=== PATIENT | female | born 1945 ===

== ENCOUNTER 2018-01-07 06:27 | Day surgery (SDC) | payer MEDICARE ==
[2016-03-25 07:02] VITALS: BMI 21.2
[~2018-01-07 06:27] MED LIST: Phenylephrine 2.5% Opht Soln OD SCH; Tropicamide 0.5% Opht Sol OD SCH
[2018-01-07] MEDS ORDERED: Carbachol 0.01% IO ONE (07:42)
[2018-01-07] MEDS ORDERED: Povidone Iodine Ophthalmic 5% Soln ONE (07:42)
[2018-01-07] MEDS ORDERED: Tetracaine 0.5% Ophth (OR ONLY) ONE (07:43)
[2018-01-07] MEDS ORDERED: Tobramycin/Dexamethasone OPHT OINT ONE (07:43)
[2018-01-07] MEDS ORDERED: Chondroitin/Hyaluronate Opth Syringe KIT (0.55 ml-0.5 ml) IO ONE (07:43)
[2018-01-07] MEDS ORDERED: Lidocaine 2% MPF (5 ml) Inj ONE (07:44)
[2018-01-07] MEDS ORDERED: Hyaluronidase Human, Recombi 150 U/ML VIAL ONE (07:44)
[2018-01-07] MEDS ORDERED: Lactated Ringer's 500 ML IV ONE (08:12)
[2018-01-07] MEDS ORDERED: Propofol 10 mg/ml Inj (20 ML) ONE (09:04)
[2018-01-07] MEDS ORDERED: Lactated Ringer's 1,000 ML IV SCH (09:45)
[2018-01-07 09:54] VITALS: O2SAT 100
[2018-01-07 11:55] VITALS: BP 116/64; PULSE 62; RESP 18; TEMP 97.7
--- NOTE | 2018-01-08 06:51 | OP ---
PROCEDURE DATE: 01/07/2018 PREOPERATIVE DIAGNOSIS: Hypermature cataract, right eye. POSTOPERATIVE DIAGNOSIS: Hypermature cataract, right eye. OPERATIVE PROCEDURE: Complex cataract surgery of right eye due to hypermaturity using VisionBlue. ATTENDING: Tony Schafer MD TYPE OF ANESTHESIA: Retrobulbar block. COMPLICATIONS: None. ESTIMATED BLOOD LOSS: Zero. PROCEDURE: The patient was brought to the operating room and properly identified. Anesthesia staff administered intravenous sedation and retrobulbar block was given to the surgical eye. The patient was then prepped and draped in the usual sterile fashion. Attention was turned to the surgical eye. A lid speculum was placed into interpalpebral fissure. Sitting temporally, two paracentesis incisions were made. The anterior chamber was filled with viscoelastic and a triplanar clear corneal incision was made. Using a cystitome, anterior capsular leaflet was created. Utrata forceps were used to create a continuous curvilinear capsulorrhexis. Balanced salt solution on a cannula was used to hydrodissect and hydrodelineate the lens. The lens was then phacoemulsified with no complications. Automated irrigation and aspiration was used to remove the cortex. Viscoelastic was used to deepen the anterior chamber. The lens was placed in the capsular bag. Automated irrigation and aspiration was used to remove the viscoelastic. The anterior chamber was filled with Miochol. The wounds were hydrated with balanced salt solution. There was noted to be no leak at the end of the case and the lens was well positioned. The lid speculum was removed. The eye was given antibiotics and steroids and covered with a patch and shield. The patient was returned to the recovery room in stable condition. ADDENDUM Due to complexity of cataract, VisionBlue was used to highlight the anterior capsule. Careful continuous curvilinear capsulorhexis was then created, and no complication. Tony Schafer MD
== END 2018-01-07 10:38 | disposition home or self-care (01) ==
LOC: C.SDS 06:27
PROVIDERS: ATTEND Ophthalmology
DX: H25.21 Age-related cataract, morgagnian type, right eye (principal); I10 Essential (primary) hypertension; E78.00 Pure hypercholesterolemia, unspecified
CPT/HCPCS: 66982; J2704; J3470; J7120; V2632

== ENCOUNTER 2018-02-04 10:16 | Day surgery (SDC) | payer MEDICARE ==
[2016-03-25 07:02] VITALS: BMI 21.2
[~2018-02-04 10:16] MED LIST changes: +Lactated Ringer's 500 ML IV ONE; -Phenylephrine 2.5% Opht Soln OD SCH; +Phenylephrine 2.5% Opht Soln OS SCH; -Tropicamide 0.5% Opht Sol OD SCH; +Tropicamide 0.5% Opht Sol OS SCH
[2018-02-04] MEDS ORDERED: Lidocaine 2% MPF (5 ml) Inj ONE (10:53)
[2018-02-04] MEDS ORDERED: Lactated Ringer's 500 ML IV ONE (11:03)
[2018-02-04] MEDS ORDERED: Propofol 10 mg/ml Inj (20 ML) ONE (12:06)
[2018-02-04] MEDS ORDERED: Povidone Iodine Ophthalmic 5% Soln ONE (12:51)
[2018-02-04] MEDS ORDERED: Carbachol 0.01% IO ONE (12:51)
[2018-02-04] MEDS ORDERED: Tetracaine 0.5% Ophth (OR ONLY) ONE (12:51)
[2018-02-04] MEDS ORDERED: Chondroitin/Hyaluronate Opth Syringe KIT (0.55 ml-0.5 ml) IO ONE (12:52)
[2018-02-04] MEDS ORDERED: Hyaluronidase Human, Recombi 150 U/ML VIAL ONE (12:52)
[2018-02-04] MEDS ORDERED: Tobramycin/Dexamethasone OPHT OINT ONE (12:52)
[2018-02-04 13:31] VITALS: BP 136/76; PULSE 87; RESP 18; TEMP 97; O2SAT 99
--- NOTE | 2018-02-05 20:43 | OP ---
PROCEDURE DATE: 02/04/2018 PREOPERATIVE DIAGNOSIS: Mature posterior subcapsular polar cataract, left eye. POSTOPERATIVE DIAGNOSIS: Mature posterior subcapsular polar cataract, left eye. SURGEON: Tony Schafer MD ANESTHESIA: Retrobulbar block. COMPLICATIONS: None. ESTIMATED BLOOD LOSS: 0 mL. OPERATIVE PROCEDURE: Cataract extraction with lens implant, left eye. DESCRIPTION OF PROCEDURE: The patient was brought to the operating room and properly identified. Anesthesia staff administered intravenous sedation and retrobulbar block was given to the surgical eye. The patient was then prepped and draped in the usual sterile fashion. Attention was turned to the surgical eye. A lid speculum was placed into interpalpebral fissure. Sitting temporally, two paracentesis incisions were made. The anterior chamber was filled with viscoelastic and a triplanar clear corneal incision was made. Using a cystitome, anterior capsular leaflet was created. Utrata forceps were used to create a continuous curvilinear capsulorrhexis. Balanced salt solution on a cannula was used to hydrodissect and hydrodelineate the lens. The lens was then phacoemulsified with no complications. Automated irrigation and aspiration was used to remove the cortex. Viscoelastic was used to deepen the anterior chamber. The lens was placed in the capsular bag. Automated irrigation and aspiration was used to remove the viscoelastic. The anterior chamber was filled with Miochol. The wounds were hydrated with balanced salt solution. There was noted to be no leak at the end of the case and the lens was well positioned. The lid speculum was removed. The eye was given antibiotics and steroids and covered with a patch and shield. The patient was returned to the recovery room in stable condition. Tony Schafer MD
== END 2018-02-04 13:39 | disposition home or self-care (01) ==
LOC: C.SDS 10:16
PROVIDERS: ATTEND Ophthalmology
DX: H25.042 Posterior subcapsular polar age-related cataract, left eye (principal)
CPT/HCPCS: 66984; J2704; J3470; J7120; V2632

== ENCOUNTER 2018-09-03 12:42 | Outpatient (CLI) | payer MEDICARE | END 2018-09-03 12:43 | disposition home or self-care (01) | LOC: C.MAMMO 12:42 | DX: Z12.31 Encounter for screening mammogram for malignant neoplasm of breast (principal) ==